=== PATIENT | male | born 1990 | race Caucasian/White ===

== ENCOUNTER 2018-02-10 17:28 | Emergency (ER) | payer OTHER ==
[~2018-02-10] VITALS: Ht 182.9 cm; Wt 75.5 kg
[2018-02-10 17:40] VITALS: BP 121/66; PULSE 60; TEMP 36.7; O2SAT 95; Ht 182.9 cm; Wt 75.5 kg
--- NOTE | 2018-02-10 19:36 | DIAGNOSTIC IMAGING REPORT ---
ABDOMEN FOR HERNIA CLINICAL HISTORY: 27 years-old Male presenting with LEFT GROIN PAIN, POSSIBLE HERNIA. TECHNIQUE: Real-time grayscale Doppler ultrasound imaging of the left inguinal region was performed for a focused evaluation at the site of clinical concern. Color Doppler ultrasound imaging was also performed. COMPARISON: None. FINDINGS: At the site of clinical concern in the left groin, the palpable abnormality corresponds to a 2.1 x 1.0 x 1.3 cm benign-appearing lymph node. There is diffuse symmetric cortical thickening, likely indicating reactive change. Normal fatty hilum. No surrounding inflammatory change or fluid. A second benign-appearing smaller lymph node is noted adjacent to this region. These lymph nodes demonstrate mild hypervascularity. IMPRESSION: 1. Reactive lymphadenopathy at the left inguinal region. No sonographic evidence of hernia. Electronically signed by: Garth Clifton M.D. 02/10/2018 7:35 PM Dictated Date/Time: 02/10/2018 7:33 PM
--- NOTE | 2018-02-10 19:57 | EMERGENCY ROOM VISIT NOTE ---
ED Visit Note First contact with patient: 17:51 CHIEF COMPLAINT: Left groin pain x 4 days HISTORY OF PRESENT ILLNESS: Patient is an otherwise healthy 27-year-old male who presents emergency department for evaluation of left groin pain. He noticed his symptoms about 4 days ago, he states that it was initially a dull, aching pain that he thought was muscular in nature. It was localized to the left groin and did not radiate. It was worse with pressure and stretching of the groin. He rated his pain a 2/10, states that it was tolerable and did not try taking any medications for his symptoms. Today, he noticed a lump in the groin area, when he was bearing down to have a bowel movement. He now states that the area is "firm" and in short he is concerned that he has a hernia. He denies any nausea or vomiting. He has been urinating and moving his bowels without difficulty. He denies any prior history of groin hernia. Last bowel movement was yesterday. REVIEW OF SYSTEMS: Review of systems as per HPI. All other systems reviewed were negative. 10 systems reviewed. PMH: Electronic medical records are reviewed and summarized as above/below. See Problem List. SOCIAL HISTORY: Patient lives at home. 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 He is originally from the [facility]. PHYSICAL EXAM: Vital Signs: Reviewed Nurse's notes. CONSTITUTIONAL: Patient is a well-appearing 27-year-old male who is awake and alert and in no acute distress. ABDOMEN: Bowel sounds are present. Abdomen is soft, nontender and nondistended. Examination of the left inguinal area does not note any redness, erythema or ecchymosis. There is no obvious masses or bulging. Palpation of the area notes a nodular mass, seeming more consistent with lymph node. No inguinal hernia is appreciated. EMERGENCY DEPARTMENT COURSE: Ultrasound of the left groin was obtained to evaluate for hernia. Findings are consistent with reactive lymphadenopathy in the left groin region. Differential diagnoses entertained included inguinal hernia, lymphadenopathy, DVT, arterial aneurysm, among others. The patient was reassured. Supportive he was encouraged to apply warm compresses to the area, use [id number] medications for discomfort, and if his symptoms do not improve, care measures were discussed. He may be a candidate for trial of antibiotic therapy, and possibly a fine-needle biopsy if necessary. He can follow-up at [facility] for this. Patient was comfortable with the plan as outlined and was discharged home in good condition. Medication reconciliation: I attest that I have personally reviewed the patient' s current medication list. Blood pressure screening : Patient was found to have normal blood pressure on screening and does not require follow-up. ABDOMEN FOR HERNIA CLINICAL HISTORY: 27 years-old Male presenting with LEFT GROIN PAIN, POSSIBLE HERNIA. TECHNIQUE: Real-time grayscale Doppler ultrasound imaging of the left inguinal region was performed for a focused evaluation at the site of clinical concern. Color Doppler ultrasound imaging was also performed. COMPARISON: None. FINDINGS: At the site of clinical concern in the left groin, the palpable abnormality corresponds to a 2.1 x 1.0 x 1.3 cm benign-appearing lymph node. There is diffuse symmetric cortical thickening, likely indicating reactive change. Normal fatty hilum. No surrounding inflammatory change or fluid. A second benign-appearing smaller lymph node is noted adjacent to this region. These lymph nodes demonstrate mild hypervascularity. IMPRESSION: 1. Reactive lymphadenopathy at the left inguinal region. No sonographic evidence of hernia. Problem List Medical Problems: (1) Anxiety Status: Chronic Surgical Problems: (1) History of tonsillectomy Status: Resolved Allergies Coded Allergies: No Known Allergies (Unverified , 02/10/18) Vital Signs Date Time Temp Pulse Resp B/P (MAP) Pulse Ox O2 Delivery O2 Flow Rate FiO2 02/10/18 17:40 36.7 60 16 121/66 95 Room Air Departure Information Impression Primary Impression: Inguinal lymphadenopathy Referrals [facility] (PCP) Patient Instructions [facility] Additional Instructions Ibuprofen(Motrin, Advil) may be used for fever or pain. Use 600mg every six hours as needed. Take with food. Avoid using more than 2400mg in a 24 hour period. Do not use 2400mg per day for more than three consecutive days without physician direction. Prolonged inappropriate use can lead to stomach upset or ulcers. This medication can be taken if you need to drive, work, or perform activities which may be dangerous when taking narcotic pain medication. (AND/OR) Acetaminophen(Tylenol) may be used for fever or pain. Use 1000mg every six hours as needed. Avoid using more than 3000mg in a 24 hour period. This medication can be taken if you need to drive, work, or perform activities which may be dangerous when taking narcotic pain medication. A heating pad, warm compresses, or a hot shower may help with tight muscles and can be done several times a day as needed. Continue current medications. Return to the ER for severe pain, fevers, redness, warmth or increased swelling , or any worsening of your condition. Follow up with your [facility] in 1-2 weeks for a recheck of the current condition.
== END 2018-02-10 20:17 | disposition home or self-care (01) ==
LOC: C.EDB 17:30 → C.EDD 20:17
DX: R59.0 Localized enlarged lymph nodes (principal)